=== PATIENT | male | born 1940 | race Caucasian/White ===

== ENCOUNTER 2022-06-29 16:23 | Outpatient (CLI) | payer OTHER | END 2022-06-29 16:24 | disposition home or self-care (01) | LOC: CSHRAD 16:23 | PROVIDERS: ATTEND Orthopaedic Surgery | DX: Z13.83 Encounter for screening for respiratory disorder NEC (principal); Z13.6 Encounter for screening for cardiovascular disorders; R91.8 Other nonspecific abnormal finding of lung field | CPT/HCPCS: 71046; 93005; 93010 ==